=== PATIENT | female | born 1945 | race Hispanic/Latino ===

== ENCOUNTER → 2019-12-24 | Outpatient (CLI) | payer MEDICARE ==
--- NOTE | 2019-12-24 09:43 | Diagnostic Imaging Report ---
Right upper quadrant abdominal ultrasound, 12/24/2019. History: Abdominal pain. Comparison: None available. Discussion: Transverse and longitudinal images of the right upper quadrant of the abdomen were obtained demonstrating a liver of normal size but diffusely increased echogenicity measuring 14.2 cm in length. There is no evidence of a focal hepatic mass. The portal vein is patent with hepatopetal flow and is within normal limits measuring 8 mm in diameter. The biliary tree is within normal limits with the common bile duct measuring 3 mm in diameter. The gallbladder is normal without evidence of shadowing stones, wall thickening, or pericholecystic fluid. The sonographic Ragsdale's sign was negative. The right kidney is normal in size and echogenicity without evidence of hydronephrosis, stones, or mass and measures 9.5 cm in length. The pancreatic <body and tail> are visualized and are normal in appearance. The abdominal aorta is within normal limits. There is no evidence of free fluid. IMPRESSION: Diffuse fatty infiltration of the liver without focal hepatic abnormality. Otherwise unremarkable exam. No evidence of cholelithiasis. Signed by: Bry Lord on 12/24/2019 9:40 AM
== END ==
LOC: US 08:35
PROVIDERS: ATTEND Emergency Medicine
DX: R10.9 Unspecified abdominal pain (principal)
CPT/HCPCS: 76705

== ENCOUNTER → 2020-01-15 | Outpatient (CLI) | payer MEDICARE | LOC: NM 08:07 | PROVIDERS: ATTEND Emergency Medicine | DX: R10.9 Unspecified abdominal pain (principal) ==